=== PATIENT | female | born 1950 | race Caucasian/White ===

== ENCOUNTER 2018-11-15 08:59 | Inpatient (IN) ==
--- NOTE | 2018-11-15 09:47 | Emergency Department Note ---
Disposition Clinical Impression: Generalized weakness, KEVIN (acute kidney injury), Pleural effusion Disposition: Admitted As Inpatient Condition: Fair Weakness HPI - General Chief complaint: ED Neuro Symptoms/Deficit Stated complaint: General weakness Time Seen by Provider: 11/15/18 09:06 Source: patient Mode of arrival: private vehicle Limitations: no limitations - History of Present Illness HPI Narrative: Patient is 68-year-old female presents here with complaints of weakness. This is been ongoing for at least 4-5 day she states. Patient states that about 4 days ago she did have an episode of emesis. She has had occasional abdominal pain. The patient does complain of chronic swelling to her legs. The patient denies any shortness of breath. The patient states that she has had diminished appetite. The patient does only complain of current nausea here in the emergency room as well as weakness and is generalized. She has had no urinary complaints. The patient denies any significant cough, chest pain, severe headache. Patient denies any focal weakness or focal numbness. The patient denies any urinary complaints, she has had no diarrhea. Patient denies any back pain or rash. Patient apparently was informed by several other doctors to go to the emergency room for further evaluation. Patient states that she has recently started on sildenafil about 2 weeks ago for her pulmonary hypertension. Pain Scale: 2 - Related Data Home Medications Medication Instructions Recorded Confirmed Cholecalciferol (D-3) [Vitamin D] 1,000 unit PO DAILY 07/28/17 08/11/18 Metoprolol XL (24 HR) Succ [Toprol 50 mg PO DAILY 07/28/17 08/11/18 XL] Omeprazole [PriLOSEC] 20 mg PO DAILY 07/28/17 08/11/18 Ursodiol [Martín Forte] 500 mg PO BID 07/28/17 08/11/18 carBAMazepine [Tegretol] 200 mg PO BID 07/28/17 08/11/18 Cyanocobalamin (B-12) [Vitamin B12] 1,000 mcg PO DAILY 08/11/18 08/11/18 Furosemide [Lasix] 20 mg PO BID 08/11/18 08/11/18 Hydroxychloroquine Sulfate 200 mg PO BID 08/11/18 08/11/18 [Plaquenil] Levothyroxine Sodium [Levoxyl] 100 mcg PO DAILY 08/11/18 08/11/18 Potassium Chloride [K-Tab ER] 20 meq PO DAILY 08/11/18 08/11/18 PrednisoLONE [Millipred] 5 mg PO DAILY 08/11/18 08/11/18 Allergies Allergy/AdvReac Type Severity Reaction Status Date / Time azithromycin Allergy See Verified 07/28/17 13:27 Comments Sulfa (Sulfonamide Allergy Rash Verified 07/28/17 13:27 Antibiotics) codeine AdvReac Rash Verified 11/15/18 09:09 Review of Systems: As mentioned per history of present illness and as follows. Constitutional: Negative for chills or fever HENT: Negative for sore throat. Eyes: Negative for visual disturbance Respiratory: Positive for shortness of breath. Cardiovascular: Negative for palpitations. Gastrointestinal: Positive for abdominal pain Genitourinary: Negative for dysuria Musculoskeletal: Negative for back pain. Skin: Negative for rash. Neurological: Negative for focal weakness Psychiatric/Behavioral: Positive for depression Past Medical History - Past Medical History Source: patient Medical history: Reports: CHF, GERD, hypertension, other Surgical history: Reports: hysterectomy, other Psychiatric history: Reports: no psych history - Social History Smoking Status: Former smoker Smokeless Tobacco Status: No Alcohol use: Reports: none Drug use: Reports: none Physical Exam PHYSICAL EXAM Constitutional: Well developed, Well nourished, No acute distress, Non-toxic appearance. HENT: Normocephalic, Atraumatic, Bilateral external ears normal, Oropharynx moist, No oral exudates, Nose normal. Neck- Normal range of motion, No tenderness, Supple. Eyes: PERRL, EOMI, Conjunctiva normal,. Cardiovascular: Regular rate and rhythm without clicks, rubs, gallops or murmurs. Respiratory: Normal breath sounds, No respiratory distress, No wheezing, rhonchi GI: Soft, nontender, no evidence of guarding or peritoneal signs. Bowel sounds are active. Musculoskeletal: Good range of motion in all major joints. No tenderness to palpation or major deformities noted. + Patient does have good strength in upper and lower extremities however somewhat weaker on the right lower extremity compared to the left on exam. She states this is chronic. Integument: Warm, Dry, No erythema, No rash. +2 pretibial edema bilateral lower extremities. Neurologic: Alert & oriented x 3, Normal sensory function, No focal deficits noted. CN II-XII grossly intact. - General General appearance: alert Course Vital Signs Temperature 97.7 F 11/15/18 09:09 Pulse Rate 57 11/15/18 09:09 Respiratory Rate 17 11/15/18 09:09 Blood Pressure 117/68 11/15/18 09:09 O2 Sat by Pulse Oximetry 97 11/15/18 09:09 Temperature 97.7 F 11/15/18 09:09 Pulse Rate 56 11/15/18 13:34 Respiratory Rate 15 11/15/18 13:34 Blood Pressure 109/64 11/15/18 13:34 O2 Sat by Pulse Oximetry 98 11/15/18 13:34 Oxygen Delivery Oxygen Delivery Room Air Weakness - MDM Narrative Medical decision making narrative: EKG was obtained that showed sinus rhythm at 55 beats a minute, did not appreciate ST segment elevation or depression. Patient does have some T-wave inversion seen inferiorly and laterally. The patient does have low voltage possibly secondary from her pulmonary hypertension. RI intervals within normal limits, QTC prolonged at 510 ms. No previous EKG. Interpreted by myself. Patient does have an elevated creatinine here in the emergency room. The patient also has worsening right-sided effusion. Patient at this point in time is also very weak and I do not believe she is able to care for self. The case at this point time was discussed with the hospitalist. The patient does have contaminated urine sample. The patient this point in time will be admitted in stable condition to the floor. Patient has no other evidence of severe infection or cardiac etiology. Patient has no evidence of intra-abdominal surgical issue. The patient at this point in time is no focal neurological deficits. Final impression 1. Generalized weakness 2. Right sided effusion, pleural 3. Acute kidney injury - Lab Data Result diagrams: 11/15/18 10:40 11/15/18 11:55 Lab Results 11/15/18 11/15/18 11/15/18 Range/Units 10:30 10:40 10:40 WBC 4.0 L (4.3-11.1) K/mcL RBC 3.20 L (3.82-4.97) M/mcL Hgb 9.5 L (11.5-15.4) g/dL Hct 31.6 L (35.3-44.9) % MCV 98.8 (83.0-100.0) fL MCH 29.7 (28.0-33.3) pg MCHC 30.1 L (31.6-35.5) g/dL RDW 17.2 H (11.5-14.5) % Plt Count 90 L (140-400) K/mcL MPV 10.5 (9.4-12.4) fL Immature Gran % 0.3 (0-4) % Seg Neutrophils % 75.7 % Lymphocytes % 16.0 % Monocytes % 7.5 % Eosinophils % 0.0 % Basophils % 0.5 % Neutrophils # 3.0 (1.6-8.9) K/mcL Lymphocytes # 0.6 (0.6-4.6) K/mcL Monocytes # 0.3 (0.0-1.3) K/mcL Eosinophils # 0.0 (0.0-0.6) K/mcL Basophils # 0.0 (0.0-0.2) K/mcL Platelet Estimate Decreased L (Normal) Sodium (136-145) mEq/L Potassium (3.5-5.1) mEq/L Chloride (98-107) mEq/L Carbon Dioxide (23-29) mEq/L BUN (8-23) mg/dL Creatinine (0.60-1.20) mg/dL Est GFR ( Amer) (> 60) Est GFR (Non-Af Amer) (> 60) BUN/Creatinine Ratio (6-26) Glucose (70-105) mg/dL Calculated Osmolality (280-300) Lactic Acid (0.5-2.2) mmol/L Calcium (8.6-10.3) mg/dL Total Bilirubin 0.7 (0.3-1.0) mg/dL Direct Bilirubin 0.2 (0.0-0.2) mg/dL Indirect Bilirubin 0.5 (0.0-1.2) mg/dL AST 36 (13-39) Units/L ALT 20 (7-52) Units/L Alkaline Phosphatase 268 H (34-104) Units/L Troponin I < 0.03 (< 0.04) ng/mL B-Natriuretic Peptide (Less than 100) pg/mL Serum Total Protein 7.2 (6.4-8.9) g/dL Albumin 2.9 L (3.5-5.7) g/dL Globulin 4.3 H (2.4-3.5) g/dL Albumin/Globulin Ratio 0.7 L (1.1-2.2) Urine Color Yellow (Yellow) Urine Clarity Cloudy A (Clear) Urine pH 5.5 (5.0-8.0) pH Units Ur Specific [place] 1.013 (1.010-1.025) Urine Protein Trace (Neg-Trace) mg/dL Urine Glucose (UA) Normal (Normal) mg/dL Urine Ketones Negative (Negative) mg/dL Urine Blood Negative (Negative) Urine Nitrite Negative (Negative) Urine Bilirubin Negative (Negative) Urine Urobilinogen Normal (Normal) mg/dL Ur Leukocyte Esterase Small H (Negative) Urine Microscopic RBC 0-3 (0-3) per hpf Urine Microscopic WBC 15-30 H (0-3) per hpf Ur Squamous Epith Cells Many H (None-Few) per lpf Urine Bacteria Many H (None-Few) per hpf Hyaline Casts None Seen (None-Few) per lpf Ur Culture Indicated? NO. A (NO) 11/15/18 11/15/18 11/15/18 Range/Units 10:40 10:40 11:55 WBC (4.3-11.1) K/mcL RBC (3.82-4.97) M/mcL Hgb (11.5-15.4) g/dL Hct (35.3-44.9) % MCV (83.0-100.0) fL MCH (28.0-33.3) pg MCHC (31.6-35.5) g/dL RDW (11.5-14.5) % Plt Count (140-400) K/mcL MPV (9.4-12.4) fL Immature Gran % (0-4) % Seg Neutrophils % % Lymphocytes % % Monocytes % % Eosinophils % % Basophils % % Neutrophils # (1.6-8.9) K/mcL Lymphocytes # (0.6-4.6) K/mcL Monocytes # (0.0-1.3) K/mcL Eosinophils # (0.0-0.6) K/mcL Basophils # (0.0-0.2) K/mcL Platelet Estimate (Normal) Sodium 140 (136-145) mEq/L Potassium 3.4 L (3.5-5.1) mEq/L Chloride 109 H (98-107) mEq/L Carbon Dioxide 24 (23-29) mEq/L BUN 47 H (8-23) mg/dL Creatinine 2.29 H (0.60-1.20) mg/dL Est GFR ( Amer) 26 L (> 60) Est GFR (Non-Af Amer) 21 L (> 60) BUN/Creatinine Ratio 21 (6-26) Glucose 71 (70-105) mg/dL Calculated Osmolality 301 H (280-300) Lactic Acid 1.8 (0.5-2.2) mmol/L Calcium 8.2 L (8.6-10.3) mg/dL Total Bilirubin (0.3-1.0) mg/dL Direct Bilirubin (0.0-0.2) mg/dL Indirect Bilirubin (0.0-1.2) mg/dL AST (13-39) Units/L ALT (7-52) Units/L Alkaline Phosphatase (34-104) Units/L Troponin I (< 0.04) ng/mL B-Natriuretic Peptide 759 H (Less than 100) pg/mL Serum Total Protein (6.4-8.9) g/dL Albumin (3.5-5.7) g/dL Globulin (2.4-3.5) g/dL Albumin/Globulin Ratio (1.1-2.2) Urine Color (Yellow) Urine Clarity (Clear) Urine pH (5.0-8.0) pH Units Ur Specific [place] (1.010-1.025) Urine Protein (Neg-Trace) mg/dL Urine Glucose (UA) (Normal) mg/dL Urine Ketones (Negative) mg/dL Urine Blood (Negative) Urine Nitrite (Negative) Urine Bilirubin (Negative) Urine Urobilinogen (Normal) mg/dL Ur Leukocyte Esterase (Negative) Urine Microscopic RBC (0-3) per hpf Urine Microscopic WBC (0-3) per hpf Ur Squamous Epith Cells (None-Few) per lpf Urine Bacteria (None-Few) per hpf Hyaline Casts (None-Few) per lpf Ur Culture Indicated? (NO) - Radiology Data Chest X-Ray 11/15/18 09:41 IMPRESSION: Bilateral pleural effusions which are small on the left and moderate to large on the right. D/ / Tracy Radford MD / Tracy Radford MD Interpreting Provider: Tracy Radford MD
[2018-11-15 10:42] LABS: Bilirubin,Urine Negative (Negative); Blood,Urine Negative (Negative); Clarity,Urine Cloudy (Clear); Color,Urine Yellow (Yellow); Glucose,Urine (UA) Normal (Normal); Ketones,Urine Negative (Negative); Leukocyte Esterase,Urine Small (Negative); Nitrite,Urine Negative (Negative); PH,Urine 5.5 pH Units (5.0-8.0); Protein,Urine Trace mg/dL (Neg-Trace); Specific Gravity,Urine 1.013 (1.010-1.025); Urobilinogen,Urine Normal (Normal)
[2018-11-15 10:44] LABS: Bacteria,Urine Many per hpf (None-Few); Hyaline Casts,Urine None Seen per lpf (None-Few); RBC,Urine 0-3 per hpf (0-3); Squamous Epithelial Cell,Urine Many per lpf (None-Few); WBC,Urine 15-30 per hpf (0-3)
[2018-11-15 10:52] LABS: Basophils % 0.5 %; Hematocrit 31.6 % (35.3-44.9); Hemoglobin 9.5 g/dL (11.5-15.4); Immature Granulocytes % 0.3 % (0-4); Lymphocytes # 0.6 K/mcL (0.6-4.6); Mean Corpuscular HGB Conc 30.1 g/dL (31.6-35.5); Mean Corpuscular Hemoglobin 29.7 pg (28.0-33.3); Mean Corpuscular Volume 98.8 fL (83.0-100.0); Mean Platelet Volume 10.5 fL (9.4-12.4); Monocytes # 0.3 K/mcL (0.0-1.3); Monocytes % 7.5 %; Red Cell Distribution Width 17.2 % (11.5-14.5); Segmented Neutrophils % 75.7 %
[2018-11-15 10:54] LABS: Platelet Count 90 K/mcL (140-400); Platelet Estimate Decreased (Normal)
[2018-11-15 11:14] LABS: Alanine Aminotransferase 20 Units/L (7-52); Albumin 2.9 g/dL (3.5-5.7); Albumin/Globulin Ratio 0.7 (1.1-2.2); Alkaline Phosphatase 268 Units/L (34-104); Aspartate Amino Transferase 36 Units/L (13-39); Bilirubin,Direct 0.2 mg/dL (0.0-0.2); Bilirubin,Indirect 0.5 mg/dL (0.0-1.2); Bilirubin,Total 0.7 mg/dL (0.3-1.0); Globulin 4.3 g/dL (2.4-3.5); Total Protein 7.2 g/dL (6.4-8.9); Troponin I < 0.03 ng/mL (< 0.04)
[2018-11-15 12:34] LABS: Calcium 8.2 mg/dL (8.6-10.3); Potassium 3.4 mEq/L (3.5-5.1)
[2018-11-15] MEDS ORDERED: Furosemide 40 MG/4 ML VIAL IVP ONE (14:44)
[2018-11-15] MEDS ORDERED: Ondansetron 4 MG/2 ML VIAL IVP PRN (14:45)
[2018-11-15] MEDS ORDERED: Naloxone 0.4 MG/ML INJ IVP PRN (14:45)
--- NOTE | 2018-11-15 15:01 | Internal Med History&Physical ---
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 Pt states her dyspnea is mostly exertional, preventing even minor activities recently. Leg swelling has been progressive up her legs into and through her thighs and she now thinks she even has fluid in her belly. She reports compliance with her lasix 20 bid but says the swelling has been worsening despite it, and thinks she's gained ~15 lbs. She was hospitalized at [facility] in February 2018 for large pleural effusion which was transudative felt to represent hepatic hydrothorax from her underlying PBC, and during that hospitalization had rashes, raynauds, migratory polyarthralgias, +CARLA SSA SSB and dsDNA, low complements, and pancytopenia, concerning for SLE. An echo at that time showed RVSP ~70 concerning for moderate to severe PH. She has not ever required oxygen but I can find no record of a walk test. VQ scan unremarkable. 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 She was supposed to start Revatio at that time but did not follow up, and then was recently started on it 2 weeks ago by BERNA Triplett. She says her symptoms have worsened in that time, but were getting worse prior to starting it as well. She does report a history of CKD3 but says her kidneys recently have been worse. In the ED, pt HR 50s, SBP 100-110s, O2 sats ranging 70-99 on RA. Wt is 63 kg. Labs showing Cr 2.3, BNP 800, K 3.4, Hb 9, WBC 4, Plt 90. CXR showing cardiomegaly with bibasilar R>>L effusions. Pt admitted for volume overload. Past medical, surgical, social, and family histories reviewed and updated as ruddy cárdenas, with addition to FHx of no relatives with liver or lung disease. Past Med Surg Social Fam HX - Past Medical History Medical history: CHF, GERD, hypertension, other Additional medical history: hiatal hernia, Pulmonary congestion Psychiatric history: no psych history - Past Surgical History Surgical History: hysterectomy, other Additional surgical history: D&C - Social History Smoking Status: Former smoker Smokeless Tobacco Status: No Alcohol use: none Drug use: none Internal Medicine - H&P: Meds Cholecalciferol (D-3) [Vitamin D] 1,000 unit PO DAILY 07/28/17 [History] Metoprolol XL (24 HR) Succ [Toprol XL] 50 mg PO DAILY 07/28/17 [History] Omeprazole [PriLOSEC] 20 mg PO DAILY 07/28/17 [History] Ursodiol [Martín Forte] 500 mg PO BID 07/28/17 [History] carBAMazepine [Tegretol] 200 mg PO BID 07/28/17 [History] Cyanocobalamin (B-12) [Vitamin B12] 1,000 mcg PO DAILY 08/11/18 [History] Furosemide [Lasix] 20 mg PO BID 08/11/18 [History] Hydroxychloroquine Sulfate [Plaquenil] 200 mg PO BID 08/11/18 [History] Levothyroxine Sodium [Levoxyl] 100 mcg PO DAILY 08/11/18 [History] Potassium Chloride [K-Tab ER] 20 meq PO DAILY 08/11/18 [History] PrednisoLONE [Millipred] 5 mg PO DAILY 08/11/18 [History] Allergy/AdvReac Type Severity Reaction Status Date / Time azithromycin Allergy See Verified 07/28/17 13:27 Comments Sulfa (Sulfonamide Allergy Rash Verified 07/28/17 13:27 Antibiotics) codeine AdvReac Rash Verified 11/15/18 09:09 All Systems PM: A 10-system review of systems was performed and is negative for pertinent findings except as documented above in the HPI. - Constitutional Vitals: Temp Pulse Resp BP Pulse Ox 97.7 F 56 15 109/64 98 11/15/18 09:09 11/15/18 13:34 11/15/18 13:34 11/15/18 13:34 11/15/18 13:34 Exam: General: NAD, good eye contact, appears older than stated age Head: Atraumatic, normocephalic. Face symmetric Eyes: EOMI, sclerae anicteric ENT: Mucous membranes dry. Normal oral mucosa and dentition. Trachea midline. Thoracic: No visible chest wall deformities. Blunted bibasilar sounds worse on R, faint crackles L base Cardio: Normal S1 and S2, regular rate and rhythm, no murmurs. +Obvious JVD when upright Abdomen: Soft, nontender, mildly distended and has fluid wave. Extremities: Warm, well perfused. DP pulses 2+ b/l. No clubbing, cyanosis. Does have pitting edema BLE through thighs Skin: Intact. No rashes, bruises, or ulcers Neuro: Awake, fully oriented. Good memory, concentration, attention. Speech fluent. CN II-XII grossly intact. Strength 5/5 in b/l UE and LE Internal Med - H&P Results - Labs CBC & Chem 7: 11/15/18 10:40 11/15/18 11:55 Labs: Short CBC 11/15/18 Range/Units 10:40 WBC 4.0 L (4.3-11.1) K/mcL Hgb 9.5 L (11.5-15.4) g/dL Hct 31.6 L (35.3-44.9) % Plt Count 90 L (140-400) K/mcL Neutrophils # 3.0 (1.6-8.9) K/mcL BMP 11/15/18 11:55 Sodium 140 Potassium 3.4 L Chloride 109 H Carbon Dioxide 24 BUN 47 H Creatinine 2.29 H Glucose 71 Calcium 8.2 L Cardiac Enzymes 11/15/18 Range/Units 10:40 Troponin I < 0.03 (< 0.04) ng/mL Liver Function 11/15/18 Range/Units 10:40 Total Bilirubin 0.7 (0.3-1.0) mg/dL Direct Bilirubin 0.2 (0.0-0.2) mg/dL AST 36 (13-39) Units/L ALT 20 (7-52) Units/L Alkaline Phosphatase 268 H (34-104) Units/L Albumin 2.9 L (3.5-5.7) g/dL Urine 11/15/18 Range/Units 10:30 Urine Color Yellow (Yellow) Urine Clarity Cloudy A (Clear) Urine pH 5.5 (5.0-8.0) pH Units Ur Specific [place] 1.013 (1.010-1.025) Urine Protein Trace (Neg-Trace) mg/dL Urine Glucose (UA) Normal (Normal) mg/dL - Impressions ITS Impressions Chest X-Ray 11/15/18 09:41 IMPRESSION: Bilateral pleural effusions which are small on the left and moderate to large on the right. 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 Acute on chronic PH: worsening, severely volume overloaded, possibly from recurrent pleural effusion, possibly related to new start sildenafil - Lasix 40 iv x1 and reassess in PM - Pulm consult re continuation of sildenafil - walk test prior to d/c - TTE when more euvolemic Pleural effusion: - IR consult for therapeutic thora KEVIN on CKD3a: monitor daily, renally dose meds Hypokalemia: replace and monitor SLE/RA/Sjogrens: c/b pancytopenia, continue home plaquenil and prednisone 5 daily PBC: c/b varices, continue home PPI and ursodiol Hypothyroidism: home synthroid Continue home tegretol PPx: sqh FEN: cardiac 1.5L, no MIVF Lines: PIV Consults: Pulm Code: Full Dispo: patient requires inpatient eval and management at this time. Anticipate 4-5 days. Will be homegoing
--- NOTE | 2018-11-15 16:25 | Electrocardiograph Report ---
[facility] Test Date: 2018-11-15 Pat Name: Guerda Wu Department: [id number] Room: 3B38 Gender: F [employer]: : 1950 Requested By: [id number] Order Number: [id number] Reading MD: Akil Morfin Measurements Intervals Ruso Rate: 55 P: 31 WI: 159 QRS: 35 QRSD: 97 T: 78 QT: 533 QTc: 510 Interpretive Statements Sinus rhythm Low voltage, extremity leads Prolonged QT interval Electronically Signed On 11-15-2018 16:23:48 EDT by Akil Morfin
[2018-11-15 16:48] LABS: Thyroid Stimulating Hormone 7.565 mcIU/mL (0.340-5.600)
[2018-11-15] MEDS: *HR* Heparin 5,000 UNIT/ML VIAL SQ SCH (17:28)
[2018-11-15] MEDS: (Ursodiol [Urso Forte] 500 MG) PO SCH (17:29)
[2018-11-15] MEDS ORDERED: carBAMazepine 200 MG TABLET PO SCH (21:00)
[2018-11-15] MEDS: Acetaminophen 325 MG TABLET PO PRN (22:13)
[2018-11-16 05:16] LABS: Red Cell Distribution Width 17.2 % (11.5-14.5)
[2018-11-16 05:18] LABS: Hematocrit 27.5 % (35.3-44.9); Hemoglobin 8.4 g/dL (11.5-15.4); Mean Corpuscular HGB Conc 30.5 g/dL (31.6-35.5); Mean Corpuscular Hemoglobin 29.4 pg (28.0-33.3); Mean Corpuscular Volume 96.2 fL (83.0-100.0); Mean Platelet Volume 10.3 fL (9.4-12.4); Red Blood Count 2.86 M/mcL (3.82-4.97)
[2018-11-16 05:36] LABS: Albumin 2.3 g/dL (3.5-5.7); Albumin/Globulin Ratio 0.6 (1.1-2.2); Bilirubin,Direct 0.2 mg/dL (0.0-0.2); Bilirubin,Indirect 0.3 mg/dL (0.0-1.2); Bilirubin,Total 0.5 mg/dL (0.3-1.0); Globulin 3.6 g/dL (2.4-3.5); Magnesium 2.1 mg/dL (1.6-2.6); Total Protein 5.9 g/dL (6.4-8.9)
[2018-11-16] MEDS: *HR* Heparin 5,000 UNIT/ML VIAL SQ SCH ×2 (05:45→16:54)
[2018-11-16] MEDS: (Ursodiol [Urso Forte] 500 MG) PO SCH (08:26)
[2018-11-16] MEDS ORDERED: PREDNISOLONE 5 MG PO SCH (09:00)
--- NOTE | 2018-11-16 09:01 | Pulmonology Consult Note ---
Date of Encounter: 11/16/18 Time of Encounter: 09:20 Assessment and Plan (1) Pulmonary hypertension Current Visit: Yes Status: Chronic This patient has been evaluated for pulmonary hypertension and she has autoimmune disease. It is better to continue her treatment and follow-up and the center where she had right heart catheter and she was started on the treatment. I have told her since she is being seen in the office then we can coordinate the care once she is discharged from the hospital. Patient feels her condition is deteriorating and she has multiple and complicated past medical history. With such a complicated case it is always better to be treated at the Center where they do see patients like. Thank you for consultation and please call for any questions. (2) Pleural effusion Current Visit: Yes Status: Chronic Patient has already had thoracentesis scheduled with interventional radiologist and I have offered her Pleurx pleural catheter for comfort and she will let us know if she would be interested to have that done in the near future. History of Present Illness Consult date: 11/16/18 Requesting physician: Grady [place] Reason for consult: pulmonary hypertension Chief complaint: Shortness of breath History of present illness: This is pleasant 68-year-old female with multiple medical problems and autoimmune disease who was seen in the office and she was referred for evaluation for pulmonary hypertension and patient stated she is being diagnosed with portal pulmonary hypertension and she was recently started with the treatment with Revatio. Patient stated she is been gaining more weight with leg swelling and overall her condition is deteriorating. Patient has been seen at [facility] also for her conditions. She has been feeling weak and also dizzy but she denies any accidents. She knows about her condition very well and she is seen many doctors for her conditions. Patient stated she has a follow-up appointment with her she would have 6 minute walk done. She denies using oxygen. She has history of pleural effusion and she has had thoracentesis in the past and she is already been scheduled to have thoracentesis with the interventional radiologist. She denies any significant wheezing. She denies any hemoptysis. Past Med Surg Social Fam HX - Past Medical History Medical history: CHF, GERD, hypertension, other Additional medical history: hiatal hernia, Pulmonary congestion Psychiatric history: no psych history - Past Surgical History Surgical History: hysterectomy, other Additional surgical history: D&C - Social History Smoking Status: Former smoker Smokeless Tobacco Status: No Alcohol use: none Drug use: none - Family History Mother Hx Family Cardiac Disorders: Yes Hx Family Autoimmune Disorders: Yes Father Hx Family Cancer: Yes Medications and Allergies Metoprolol XL (24 HR) Succ [Toprol XL] 50 mg PO QAM 07/28/17 [History] carBAMazepine [Tegretol] 200 mg PO DAILY 07/28/17 [History] Hydroxychloroquine Sulfate [Plaquenil] 200 mg PO BID 08/11/18 [History] Furosemide [Lasix] 40 mg PO BID 11/15/18 [History] Levothyroxine Sodium 75 mcg PO QAM 11/15/18 [History] Multivitamin [Daily Multiple Vitamin] 1 each PO DAILY 11/15/18 [History] Omeprazole Magnesium [Prilosec Otc] 20 mg PO QAM 11/15/18 [History] Sildenafil Citrate [Revatio] 20 mg PO TID 11/15/18 [History] Allergy/AdvReac Type Severity Reaction Status Date / Time azithromycin Allergy See Verified 11/15/18 20:03 Comments Sulfa (Sulfonamide Allergy Rash, Verified 11/15/18 20:03 Antibiotics) Nausea codeine AdvReac Rash, Verified 11/15/18 20:03 Nausea All Systems: The remainder of the systems were reviewed and are negative Physical Examination Vital Signs: Vital Signs, Last 4 Hours Temp Pulse Resp BP Pulse Ox 11/16/18 07:02 98.2 F 74 16 101/61 95 General appearance: lethargic, appears uncomfortable ENT: oropharynx moist Neck: supple, JVD Effort: mildly labored Auscultation: left: clear, right: diminished breath sounds Percussion: left: not dull, right: dull Cardiovascular: regular rate and rhythm, murmur noted Gastrointestinal: normoactive bowel sounds, non-distended Extremities: no cyanosis, edema normal mental status, non-focal exam depressed Results - Laboratory Findings CBC and BMP: 11/16/18 04:30 11/16/18 04:30 Abnormal lab findings: Abnormal lab results WBC 2.2 K/mcL (4.3-11.1) L 11/16/18 04:30 RBC 2.86 M/mcL (3.82-4.97) L 11/16/18 04:30 Hgb 8.4 g/dL (11.5-15.4) L 11/16/18 04:30 Hct 27.5 % (35.3-44.9) L 11/16/18 04:30 MCHC 30.5 g/dL (31.6-35.5) L 11/16/18 04:30 RDW 17.2 % (11.5-14.5) H 11/16/18 04:30 Plt Count 59 K/mcL (140-400) L 11/16/18 04:30 Decreased (Normal) L 11/15/18 10:40 Potassium 3.4 mEq/L (3.5-5.1) L 11/15/18 11:55 Chloride 110 mEq/L (98-107) H 11/16/18 04:30 BUN 45 mg/dL (8-23) H 11/16/18 04:30 2.04 mg/dL (0.60-1.20) H 11/16/18 04:30 Est GFR ( Amer) 29 (> 60) L 11/16/18 04:30 Est GFR (Non-Af Amer) 24 (> 60) L 11/16/18 04:30 307 (280-300) H 11/16/18 04:30 Calcium 8.0 mg/dL (8.6-10.3) L 11/16/18 04:30 250 Units/L (34-104) H 11/16/18 04:30 B-Natriuretic Peptide 759 pg/mL (Less than 100) H 11/15/18 10:40 5.9 g/dL (6.4-8.9) L 11/16/18 04:30 2.3 g/dL (3.5-5.7) L 11/16/18 04:30 3.6 g/dL (2.4-3.5) H 11/16/18 04:30 0.6 (1.1-2.2) L 11/16/18 04:30 TSH 7.565 mcIU/mL (0.340-5.600) H 11/15/18 11:55 Cloudy (Clear) A 11/15/18 10:30 Ur Leukocyte Esterase Small (Negative) H 11/15/18 10:30 15-30 per hpf (0-3) H 11/15/18 10:30 Ur Squamous Epith Cells Many per lpf (None-Few) H 11/15/18 10:30 Many per hpf (None-Few) H 11/15/18 10:30 Ur Culture Indicated? NO. (NO) A 11/15/18 10:30 - Diagnostic Findings Chest x-ray: report reviewed, image reviewed - Clinical Findings Intake & Output: Intake & Output 11/15/18 11/16/18 11/16/18 23:59 07:59 15:59 Intake Total 120 / 120 Output Total 200 / 200 Balance 120 / -30 -200 / -200 Weight 63.6 kg Consult Discharge Plan - Plan Referrals: Bonnie Platt MD [Primary Care Provider] -
[2018-11-16] MEDS: Metoprolol XL (24 HR) Succ 50 MG TAB.ER.24H PO SCH (09:33)
[2018-11-16] MEDS: Furosemide 40 MG/4 ML VIAL IVP SCH ×2 (10:01→16:52)
--- NOTE | 2018-11-16 11:11 | IR Procedure Note ---
Date of procedure: 11/16/18 (4277) Consent Obtained: Written consent Timeout: Correct patient and procedure verified, Correct site verified (right pleural effusion visualized using ultrasound), Time out performed, Skin prep completed ([id number]) Local anesthetic: Lidocaine 1% (6 cc) Indications: right plural effusion Procedure Performed: clear yellow right sided pleural fluid was aspirated Was there an customer marketing assistant present: Yes Greens Laborer: Quin Shetty Site/Technique: fluid collection localized, lidicaine used as anesthetic to skin and pleura Results/Findings: CXR decreased volume of fluid in the right pleural space. No pneumothorax Estimated blood loss (cc): 0 Complications: None; Tolerated procedure well Post Procedure Treatment Plan: No change Specimen: total 1,250cc clear yellow pleural fluid removed
--- NOTE | 2018-11-16 16:00 | Internal Med Progress Note ---
Hospitalist Progress Note - Encounter Date of Encounter: 11/16/18 Time of Encounter: 15:57 - Subjective Interval History: Pt tolerated thora well today. Says she feels her SOB has improved following it. Still swollen in legs, thighs, belly. No N/V/D. No CP, no cough. - Exam Vitals: Temp Pulse Resp BP Pulse Ox 98.1 F 63 16 95/56 97 11/16/18 11:33 11/16/18 11:33 11/16/18 11:33 11/16/18 11:33 11/16/18 11:33 Exam: General: NAD, good eye contact, appears older than stated age Thoracic: Decent aeration today, minimal bibasilar crackles, no bleeding from thora site Cardio: Normal S1 and S2, regular rate and rhythm, no murmurs. +Obvious JVD when upright Abdomen: Soft, nontender, mildly distended and has fluid wave. Extremities: Warm, well perfused. DP pulses 2+ b/l. Does have pitting edema BLE through thighs, none in body wall Skin: Intact. No rashes, bruises, or ulcers Neuro: Awake, fully oriented. Speech fluent. 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 Acute on chronic PH: remains severely volume overloaded, respiratory symptoms improved s/p thoracentesis. Ultimately, pt has severe underlying disease and would likely benefit from liver transplantation; however, she is unsure she wants to proceed with this evaluation following hospital discharge and states that her buffer nickel Dr Triplett at [facility] [place] has recommended this as well. - Lasix 40 iv bid - Pulm consult re continuation of sildenafil - walk test prior to d/c - thigh high compression stockings to assist with edema Pleural effusion: s/p thora ~1L via IR on 11/16 - appearance is straw colored - send for protein, glucose, stain/culture, cell count&diff KEVIN on CKD3a: monitor daily, renally dose meds, mild improvement today SLE/RA/Sjogrens: c/b pancytopenia, continue home plaquenil PBC: c/b varices, continue home PPI Hypothyroidism: home synthroid Continue home tegretol PPx: sqh FEN: cardiac 1.5L, no MIVF Lines: PIV Consults: Pulm Code: Full Dispo: patient requires inpatient eval and management at this time. Anticipate 4-5 days. Will be homegoing Internal Medicine: Result - Labs CBC & Chem 7: 11/16/18 04:30 11/16/18 04:30 Labs: Short CBC 11/16/18 Range/Units 04:30 WBC 2.2 L (4.3-11.1) K/mcL Hgb 8.4 L (11.5-15.4) g/dL Hct 27.5 L (35.3-44.9) % Plt Count 59 L (140-400) K/mcL BMP 11/16/18 04:30 Sodium 143 Potassium 4.0 Chloride 110 H Carbon Dioxide 25 BUN 45 H Creatinine 2.04 H Glucose 80 Calcium 8.0 L Liver Function 11/16/18 Range/Units 04:30 Total Bilirubin 0.5 (0.3-1.0) mg/dL Direct Bilirubin 0.2 (0.0-0.2) mg/dL AST 34 (13-39) Units/L ALT 19 (7-52) Units/L Alkaline Phosphatase 250 H (34-104) Units/L Albumin 2.3 L (3.5-5.7) g/dL - Impressions Impressions Echocardiogram 11/15/18 14:48 Impressions: LVEF 60-65%. Normal LV chamber size, wall thickness and function. Mild left ventricular diastolic dysfunction. Normal right ventricular structure and function. Mild aortic regurgitation. Severe pulmonary hypertension. Estimated RVSP is 62 mmHg. Left Ventricular Wall Motion: Rest Echo Findings All wall segments showed normal motion. Findings: Study Quality * Technically adequate exam. ECG Findings * Normal sinus rhythm. Left Ventricle * LVEF 60-65%. * Normal LV chamber size, wall thickness and function. * Mild left ventricular diastolic dysfunction. Right Ventricle * Normal right ventricular structure and function. Left Atrium * Mildly dilated left atrium. Right Atrium * Normal right atrial size. Aortic Valve * Trileaflet aortic valve. * Mild aortic regurgitation. * No aortic stenosis. Mitral Valve * Normal mitral valve structure and function. * No mitral stenosis. * Trace mitral regurgitation. Tricuspid Valve * Normal tricuspid valve structure and function. * Trace tricuspid regurgitation. * Severe pulmonary hypertension. * Estimated RVSP is 62 mmHg. Pulmonic Valve * Normal pulmonic valve structure and function. * Trace pulmonic regurgitation. Aorta * Normally sized aortic root. Pericardium * The pericardium appears normal. IVC * Normal IVC dimensions and inspiratory collapse. Pulmonary Artery * Normal visualized portions of the main pulmonary artery. Thoracentesis 11/16/18 06:55 IMPRESSION: Successful ultrasound guided right thoracentesis. D/ / Quin Shetty MD / Quin Shetty MD Interpreting Provider: Quin Shetty MD Chest X-Ray 11/16/18 10:51 IMPRESSION: Status post right thoracentesis with decreased volume of fluid in the right pleural space. No pneumothorax is seen. D/ / 11/16/2018 11:10:31 Lamin Sandoval MD / ophelia Interpreting Provider: Lamin Sandoval MD Consult Discharge Plan - Plan Referrals: Bonnie Platt MD [Primary Care Provider] -
[2018-11-16 18:01] LABS: Glucose,Pleural Fluid 88 mg/dL (No Ref Range); LDH,Pleural Fluid 82 Units/L (No Ref Range); Total Protein,Pleural Fluid < 3.0 g/dL
[2018-11-16 18:05] LABS: RBC,Pleural Fluid 0.003 M/mcL
[2018-11-16 19:14] LABS: Appearance of Pleural Fl Hazy (Clear)
[2018-11-16] MEDS: carBAMazepine 200 MG TABLET PO SCH (20:32)
[2018-11-17] MEDS: *HR* Heparin 5,000 UNIT/ML VIAL SQ SCH ×2 (06:09→16:14)
[2018-11-17 08:33] LABS: Hematocrit 28.4 % (35.3-44.9); Mean Corpuscular Volume 97.3 fL (83.0-100.0); Red Blood Count 2.92 M/mcL (3.82-4.97)
[2018-11-17 08:35] LABS: Hemoglobin 8.6 g/dL (11.5-15.4); Immature Platelets 2.5 % (1.1-6.1); Mean Corpuscular HGB Conc 30.3 g/dL (31.6-35.5); Mean Corpuscular Hemoglobin 29.5 pg (28.0-33.3); Red Cell Distribution Width 17.3 % (11.5-14.5)
[2018-11-17] MEDS: Metoprolol XL (24 HR) Succ 50 MG TAB.ER.24H PO SCH (08:35)
[2018-11-17] MEDS: Furosemide 40 MG/4 ML VIAL IVP SCH ×3 (08:35→16:14)
[2018-11-17 08:53] LABS: Potassium 3.7 mEq/L (3.5-5.1)
--- NOTE | 2018-11-17 13:40 | Internal Med Progress Note ---
Hospitalist Progress Note - Encounter Date of Encounter: 11/17/18 Time of Encounter: 13:38 - Subjective Interval History: Pt feels like her leg swelling is finally starting to improve noticeably with help of compression hose, and her belly while still swollen is less so and no longer has any nausea. Breathing is back to normal. - Exam Vitals: Temp Pulse Resp BP Pulse Ox 98.1 F 77 14 104/68 91 11/17/18 11:06 11/17/18 11:06 11/17/18 11:06 11/17/18 11:06 11/17/18 11:06 Exam: General: NAD, good eye contact, appears older than stated age Thoracic: Decent aeration today, minimal bibasilar crackles Cardio: Normal S1 and S2, regular rate and rhythm, no murmurs. +Obvious JVD when upright Abdomen: Soft, nontender, mildly distended Extremities: Warm, well perfused. DP pulses 2+ b/l. Does have pitting edema b/l legs improved from before, and only dependent edema in thighs, none in body wall Skin: Intact. No rashes, bruises, or ulcers Neuro: Awake, fully oriented. Speech fluent. 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 Acute on chronic PH, HFpEF (poa): remains severely volume overloaded although is improving, respiratory symptoms improved s/p thoracentesis and now no GI symptoms. Ultimately, pt has severe underlying disease and would likely benefit from liver transplantation; however, she is unsure she wants to proceed with this evaluation following hospital discharge and states that her chemistry account manager Dr Triplett at [facility] [place] has recommended this as well. - Lasix 40 iv bid, likely convert to PO tomorrow - resume home revatio - walk test prior to d/c - thigh high compression stockings to assist with edema Pleural effusion: s/p thora ~1L via IR on 11/16, transudative (prot <3, LDH 80) KEVIN on CKD3a: monitor daily, renally dose meds, mild improvement again today with diuresis SLE/RA/Sjogrens: c/b pancytopenia, continue home plaquenil PBC: c/b varices, continue home PPI Hypothyroidism: home synthroid Continue home tegretol PPx: sqh FEN: cardiac 1.5L, no MIVF Lines: PIV Consults: Code: Full Dispo: patient requires inpatient eval and management at this time. Anticipate 2-3 days. Will be homegoing Internal Medicine: Result - Labs CBC & Chem 7: 11/17/18 08:22 11/17/18 08:22 Labs: Short CBC 11/17/18 Range/Units 08:22 WBC 2.8 L (4.3-11.1) K/mcL Hgb 8.6 L (11.5-15.4) g/dL Hct 28.4 L (35.3-44.9) % Plt Count 65 L (140-400) K/mcL BMP 11/17/18 08:22 Sodium 138 Potassium 3.7 Chloride 110 H Carbon Dioxide 27 BUN 46 H Creatinine 1.93 H Glucose 81 Calcium 8.0 L - Impressions Impressions Thoracentesis 11/16/18 06:55 IMPRESSION: Successful ultrasound guided right thoracentesis. D/ / Quin Shetty MD / Quin Shetty MD Interpreting Provider: Quin Shetty MD Consult Discharge Plan - Plan Referrals: Bonnie Platt MD [Primary Care Provider] -
[2018-11-17] MEDS: Sildenafil Citrate 20 MG TABLET PO SCH ×2 (16:14→21:10)
[2018-11-17] MEDS: carBAMazepine 200 MG TABLET PO SCH (20:02)
[2018-11-18 05:00] LABS: Hematocrit 28.1 % (35.3-44.9); Hemoglobin 8.7 g/dL (11.5-15.4); Immature Platelets 2.7 % (1.1-6.1); Mean Corpuscular Hemoglobin 29.8 pg (28.0-33.3); Mean Corpuscular Volume 96.2 fL (83.0-100.0); Mean Platelet Volume 10.7 fL (9.4-12.4); Red Blood Count 2.92 M/mcL (3.82-4.97); Red Cell Distribution Width 17.3 % (11.5-14.5)
[2018-11-18 05:18] LABS: Magnesium 1.9 mg/dL (1.6-2.6); Potassium 3.9 mEq/L (3.5-5.1)
[2018-11-18] MEDS: *HR* Heparin 5,000 UNIT/ML VIAL SQ SCH ×2 (06:06→16:14)
[2018-11-18] MEDS: Sildenafil Citrate 20 MG TABLET PO SCH ×3 (08:27→20:13)
[2018-11-18] MEDS: Metoprolol XL (24 HR) Succ 50 MG TAB.ER.24H PO SCH (08:27)
[2018-11-18] MEDS: Furosemide 40 MG/4 ML VIAL IVP SCH (08:28)
--- NOTE | 2018-11-18 11:19 | Internal Med Progress Note ---
Hospitalist Progress Note - Encounter Date of Encounter: 11/18/18 Time of Encounter: 11:17 - Subjective Interval History: Feels better physically today with decreased leg swelling and reports able to bend her knees today for first time in weeks, but also reports being in better mental state. Confesses that earlier this week she felt like would be better than being swollen and miserable, but now that she's diuresing she feels not only better but happier. Today asks more questions about liver transplant process and was encouraged to follow up outpatient for said referral from her enrolled nurse. - Exam Vitals: Temp Pulse Resp BP Pulse Ox 98.2 F 73 19 105/64 93 11/18/18 06:55 11/18/18 06:55 11/18/18 06:55 11/18/18 06:55 11/18/18 06:55 Exam: General: NAD, good eye contact, appears older than stated age Thoracic: Decent aeration, no crackles Cardio: Normal S1 and S2, regular rate and rhythm, no murmurs. +Obvious JVD when upright Abdomen: Soft, nontender, mildly distended Extremities: Warm, well perfused. DP pulses 2+ b/l. Mild pitting edema b/l legs and none in thighs Skin: Intact. No rashes, bruises, or ulcers Neuro: Awake, fully oriented. Speech fluent. - Summary of Assessment and Plan Summary of Assessment and Plan: Guerda Jason christopher 67 F w hx SLE, RA, Sjogrens, primary biliary cirrhosis c/b varices and hepatic hydrothorax, severe PulmHTN, CKD3a, and hypothyroidism, who p/w subacute exertional dyspnea, edema, elevated BNP, and CXR w moderate R effusion, concerning for acute exacerbation of portopulmonary PH. Acute on chronic PH, HFpEF: significant improvement in volume status with diuresis, no further GI symptoms and no respiratory symptoms following diuresis and thoracentesis. Ultimately, pt has severe underlying disease and would likely benefit from liver transplantation; will follow up w her enrolled nurse Dr Triplett at [facility] [place] for this. - convert Lasix to 40 po bid - continue home revatio - walk test prior to d/c - thigh high compression stockings helping very much Generalized weakness: improving w diuresis - PT/OT consult today, suspect will benefit from home health Pleural effusion: s/p thora ~1L via IR on 11/16, transudative (prot <3, LDH 80), needs outpatient follow up to monitor for recurrence KEVIN on CKD3a: baseline Cr ~1.2-1.4, monitor daily, renally dose meds, mild improvement again today with diuresis SLE/RA/Sjogrens: c/b pancytopenia, continue home plaquenil PBC: c/b varices, continue home PPI Hypothyroidism: home synthroid Continue home tegretol PPx: sqh FEN: cardiac 1.5L, no MIVF Lines: PIV Consults: Code: Full Dispo: patient requires inpatient eval and management at this time. Anticipate 1-2 days. Will likely be homegoing Internal Medicine: Result - Labs CBC & Chem 7: 11/18/18 04:26 11/18/18 04:26 Labs: Short CBC 11/18/18 Range/Units 04:26 WBC 2.9 L (4.3-11.1) K/mcL Hgb 8.7 L (11.5-15.4) g/dL Hct 28.1 L (35.3-44.9) % Plt Count 59 L (140-400) K/mcL BMP 11/18/18 04:26 Sodium 142 Potassium 3.9 Chloride 108 H Carbon Dioxide 26 BUN 45 H Creatinine 1.82 H Glucose 77 Calcium 8.0 L Consult Discharge Plan - Plan Referrals: Bonnie Platt MD [Primary Care Provider] -
[2018-11-18] MEDS: Furosemide 40 MG TABLET PO SCH (16:14)
[2018-11-18] MEDS: carBAMazepine 200 MG TABLET PO SCH (20:13)
[2018-11-18] MEDS: Acetaminophen 325 MG TABLET PO PRN (20:13)
[2018-11-19 04:03] VITALS: BP 92/59
[2018-11-19] MEDS: Acetaminophen 325 MG TABLET PO PRN (05:26)
[2018-11-19] MEDS: *HR* Heparin 5,000 UNIT/ML VIAL SQ SCH (05:26)
[2018-11-19 05:29] LABS: Potassium 3.7 mEq/L (3.5-5.1)
[2018-11-19] MEDS ORDERED: Ketorolac 15 MG/ML VIAL IVP ONE (05:45)
--- NOTE | 2018-11-19 08:09 | Discharge Summary ---
- NOTES TO OUTPATIENT PROVIDER Notes to Outpatient Provider: Fluid overload, diuresed w IV lasix and discharged on PO, needs f/u chem panel Date of Encounter: 11/19/18 Time of Encounter: 08:06 Hospital course: Dear Doctors, I recently had the opportunity to care for this patient during their recent hospital stay at [facility]. Guerda Gomez a 67 F w hx SLE, RA, Sjogrens, primary biliary cirrhosis c/b varices and hepatic hydrothorax, severe PulmHTN, CKD3a, and hypothyroidism, who presented at time of admission with subacute exertional dyspnea and progressive edema in legs, thighs, and abd. In the ED, she had elevated BNP 760, and CXR w moderate R effusion, concerning for recurrent hydrothorax and acute exacerbation of portopulmonary PH. In the hospital, pt underwent thoracentesis of 1L via IR on 11/16, the studies of which were transudative (prot<3, LDH 80). TTE showed known severe PH, RVSP 62. She was started on IV lasix and experienced good UOP with improvement in her LE edema, and Cr improved from 2.3 to 1.8 on discharge. She was monitored for a day on PO diuresis to ensure efficacy of PO. Per PT/OT, she will benefit from home health services. Follow up care will be with her primary crusher dry ground mica at [facility] [place], and pt understands severity of her illness and is interested in pursuing liver transplant, which she will further discuss w her crusher dry ground mica. Dx: hepatic hydrothorax, acute on chronic PH and HFpEF, KEVIN on CKD3a Pertinent tests/consults: TTE, thoracentesis Follow up: Pulm 2-3 weeks, PCP 1 week Tests pending: none Med changes: - resume lasix 40 po bid - new potassium 20 meq daily Mental status: awake, fully oriented Code status: Dispute Coordinator spent on discharge: 35 minutes It has been my pleasure participating in this patient's care. Please contact me with any questions or concerns regarding their hospital stay. Sincerely, Grady Birmingham MD - Discharge Medications Prescriptions: New Potassium Chloride 20 meq PO DAILY #30 tab.er.prt Continued carBAMazepine [Tegretol] 200 mg PO DAILY Metoprolol XL (24 HR) Succ [Toprol Xl] 50 mg PO QAM Hydroxychloroquine Sulfate [Plaquenil] 200 mg PO BID Levothyroxine Sodium 75 mcg PO QAM Omeprazole Magnesium [Prilosec Otc] 20 mg PO QAM Sildenafil Citrate [Revatio] 20 mg PO TID Multivitamin [Daily Multiple Vitamin] 1 each PO DAILY Furosemide [Lasix] 40 mg PO BID #60 tablet Home Medications: Metoprolol XL (24 HR) Succ [Toprol Xl] 50 mg PO QAM 07/28/17 [History] carBAMazepine [Tegretol] 200 mg PO DAILY 07/28/17 [History] Hydroxychloroquine Sulfate [Plaquenil] 200 mg PO BID 08/11/18 [History] Levothyroxine Sodium 75 mcg PO QAM 11/15/18 [History] Multivitamin [Daily Multiple Vitamin] 1 each PO DAILY 11/15/18 [History] Omeprazole Magnesium [Prilosec Otc] 20 mg PO QAM 11/15/18 [History] Sildenafil Citrate [Revatio] 20 mg PO TID 11/15/18 [History] Furosemide [Lasix] 40 mg PO BID #60 tablet 11/19/18 [Rx] Potassium Chloride 20 meq PO DAILY #30 tab.er.prt 11/19/18 [Rx] Allergies/Adverse Reactions: Allergy/AdvReac Type Severity Reaction Status Date / Time azithromycin Allergy See Verified 11/15/18 20:03 Comments Sulfa (Sulfonamide Allergy Rash, Verified 11/15/18 20:03 Antibiotics) Nausea codeine AdvReac Rash, Verified 11/15/18 20:03 Nausea Date of admission: 11/15/18 14:45 Primary care physician: Bonnie Platt MD Consults: 11/15/18 15:51 Consult to Pulmonology [CONS] Routine Consulting Provider: Pulm [facility] [place] Reason for Consult: pulmHTN pt recently started on revatio now with suspected exacerbation and volume overload; should revatio be continued? Call Completed: No 11/16/18 09:17 Consult to Nurse Navigator [CONS] Routine Comment: PULMONARY HTN, CHF 11/18/18 09:54 Consult to Occupational Therapy [CONS] Routine Comment: Evaluate, develop and implement POC Reason for Consult: frequent falls at home Does patient have active BEDREST order?: No Is patient medically & hemodynamically stable?: Yes Patient assessed for mobility or mobilized this visit?: Yes Consult to Physical Therapy [CONS] Routine Comment: Evaluate, develop and implement POC Reason for Consult: frequent falls at home Does patient have active BEDREST order?: No Is patient medically & hemodynamically stable?: Yes Patient assessed for mobility or mobilized this visit?: Yes - Constitutional Vitals: Temp Pulse Resp BP Pulse Ox 98.0 F 68 15 92/59 94 11/19/18 06:32 11/19/18 06:32 11/19/18 06:32 11/19/18 06:32 11/19/18 06:32 Exam: General: NAD, good eye contact, appears older than stated age Thoracic: Decent aeration, no crackles Cardio: Normal S1 and S2, regular rate and rhythm, no murmurs. +JVD when upright Abdomen: Soft, nontender, mildly distended Extremities: Warm, well perfused. DP pulses 2+ b/l. Mild pitting edema b/l legs and none in thighs Skin: Intact. No rashes, bruises, or ulcers Neuro: Awake, fully oriented. Speech fluent. - Patient Status Disposition: Home Health Service Condition: Fair Functional capacity at discharge: uses cane/walker Overall status at discharge: patient is progressing back to baseline - Discharge Instructions Instructions: Heart Failure (DC), Pleural Effusion (DC), Low Sodium Diet (DC) Follow Up With: Mikhail Triplett MD [Non-Partnered Physician] - (Please call Wednesday to schedule follow up appointment for 1 week from date of discharge. ) Bonnie Platt MD [Primary Care Provider] - (Please call Wednesday to schedule hospital follow up appointment for 7-10 days from date of discharge. ) Additional Instructions: Follow-up appointments: If there is not an appointment listed below, please call your physician and schedule a follow-up appointment. If you have congestive heart failure and your symptoms return, make an appointment with your physician. Medication List: Carry an up to date list of medications you are taking at all time. We have given you an updated medication list including any new medications that you have been prescribed. Please provide that list to your primary provider Symptoms: If your condition changes or you experience any of the following symptoms, notify your physician immediately: Unusual or worsening pain, fever, persistent nausea and vomiting, bleeding, increase in swelling (especially in your legs), sudden weight gain, extreme dizziness, chest pain, increased drainage or redness from a wound or incision. Go to the emergency department if you experience a problem with breathing. Weights: If you have a history of swelling or shortness of breath, weigh yourself daily and notify your physician if you have a weight gain of two or more pounds in one day or 5 or more pounds in a week. If you experience any of the warning signs for stroke: Sudden numbness or weakness of the face, arm or leg; especially on one side of the body, sudden confusion, trouble speaking or understanding, sudden trouble seeing in one or both eyes, sudden trouble walking, dizziness, loss of balance or coordination, sudden sever headache with no cause; Call 911 or go to the emergency room. Stroke is a medical emergency. Some risk factors for stroke: Age, cigarette smoking, diabetes, excessive alcohol consumption, family history, high blood pressure, overweight, physical inactivity, prior stroke, heart attack, diagnosis of carotid artery stenosis or other artery disease. If you smoke, STOP: Smoking or tobacco use significantly increases your risk of heart and lung disease. Your chance of disease greatly increases if you continue to smoke. For more information, call the [place] tobacco quit line for smoking cessation 8-881-YRZF-NOW ( ) - Diet and Activity Activity: as per physical therapy, resume usual activities as tolerated Diet: low salt diet
[2018-11-19] MEDS: Metoprolol XL (24 HR) Succ 50 MG TAB.ER.24H PO SCH (08:36)
[2018-11-19] MEDS: Furosemide 40 MG TABLET PO SCH (08:37)
[2018-11-19] MEDS: Sildenafil Citrate 20 MG TABLET PO SCH (08:37)
--- NOTE | 2018-11-19 10:16 | Physician Discharge Referral ---
Home Health/Hosp Referral Info Transfer to: Home Health Provider in Charge Post Discharge: PCP - Diagnosis (1) Pulmonary hypertension Priority: Secondary Status: Chronic (2) Cirrhosis Priority: Primary Status: Chronic - Respiratory Orders Smoking Cessation: Smoking cessation has been advised. For more information, call the [place] Tobacco Quit Line at 5-191-CGDF-NOW. - Activity Activity Orders: Up ad catia - Services Needed Following services are medically necessary services: Nursing, Home Health Aide, Physical Therapy, Occupational Therapy - Transfer Medications Prescriptions: Furosemide [Lasix] 40 mg PO BID #60 tablet Potassium Chloride 20 meq PO DAILY #30 tab.er.prt Home Medications: Metoprolol XL (24 HR) Succ [Toprol Xl] 50 mg PO QAM 07/28/17 [History] carBAMazepine [Tegretol] 200 mg PO DAILY 07/28/17 [History] Hydroxychloroquine Sulfate [Plaquenil] 200 mg PO BID 08/11/18 [History] Levothyroxine Sodium 75 mcg PO QAM 11/15/18 [History] Multivitamin [Daily Multiple Vitamin] 1 each PO DAILY 11/15/18 [History] Omeprazole Magnesium [Prilosec Otc] 20 mg PO QAM 11/15/18 [History] Sildenafil Citrate [Revatio] 20 mg PO TID 11/15/18 [History] Furosemide [Lasix] 40 mg PO BID #60 tablet 11/19/18 [Rx] Potassium Chloride 20 meq PO DAILY #30 tab.er.prt 11/19/18 [Rx] Allergies/Adverse Reactions: Allergy/AdvReac Type Severity Reaction Status Date / Time azithromycin Allergy See Verified 11/15/18 20:03 Comments Sulfa (Sulfonamide Allergy Rash, Verified 11/15/18 20:03 Antibiotics) Nausea codeine AdvReac Rash, Verified 11/15/18 20:03 Nausea Certification: Further, I certify that my clinical findings support that this patient is homebound (i.e. absences from home require considerable and taxing effort and are for medical reasons or synagogue services or infrequently or short duration when for other reasons) because: Homebound Reason: Severity of cardiac or pulmonary status limits activity tolerance Attestation: My signature below is to certify that this patient is under my care and that I, or nurse practitioner, or a physician's assistant finance manager working with me, has a [id number] encounter with this patient.
== END 2018-11-19 12:44 | disposition home health service (06) | DRG 314 ==
LOC: 3BNU 08:59 → EMEROOARM 08:59 → SUATTDRO 14:45 → 3BNU 14:58
PROVIDERS: ADMIT Student in an Organized Health Care Education/Training Program; ATTEND Internal Medicine